=== PATIENT | male | born 1980 | race Caucasian/White ===

== ENCOUNTER 2016-09-16 07:01 | Day surgery (SDC) | payer SELFPAY ==
[2016-09-16] VITALS (8 sets, daily range): BP systolic 125–154; BP diastolic 77–103; PULSE 76–90; RESP 12–16; TEMP 97–98.6; O2SAT 94–97; Ht 185.4 cm; Wt 110.3 kg
[~2016-09-16] VITALS: Ht 185.4 cm; Wt 110.3 kg
[~2016-09-16 07:01] MED LIST: CYCL-375 PO; LIDOCAINE 1% (10mg/ml) 2ml SDV INJ ONE; LR 1,000 ML IV SCH
--- OUTSIDE RECORDS SUMMARY | 2016-09-16 07:06 | XMS REPORT | Referral Summary ---
Author Organization Unknown Address Unknown Phone Unavailable Care Team Providers Care Aircraft Quality Control Inspector Name Role Phone Abebe Mejias JR Primary Care Physician [phone] [facility]counter [facility] [id number] Date(s): 09/26/14 - 09/26/14 [facility] [address] [place], [place] [address] Discharge Diagnosis: Chronic constipation Discharge Disposition: Home or Self Care Attending Physician: Don Ames III, MD Admitting Physician: Don Ames III, MD Referring Physician: Tobias Mejias JR, MD, [facility] Vital Signs Most recent to 1 oldest [Reference Range]: Peripheral Pulse 72 bpm Rate [60-100 bpm] (09/26/14 10:53 AM) Blood Pressure 116/68 mmHg [90-140/60-90 mmHg] (09/26/14 10:53 AM) Problem List Condition Effective Dates Status Health Status Informant Allergic rhinitis Active (disorder)(Confirmed ) Chronic Active constipation(Confirm ed) Erythrasma(Confirmed Active ) Folliculitis(Confirm Active ed) Hyperlipidemia(Confi Active rmed) Insomnia Active (disorder)(Confirmed ) Well adult Active exam(Confirmed) Obesity(Confirmed) Active patient Sinusitis(Confirmed) Active anterior knee pain Active syndrome-right(Confi rmed) Allergies, Adverse Reactions, Alerts No Known Medication Allergies Medications cephalexin 250 mg oral tablet tabs, Oral, QID, 0 Refill(s) Start Date: 09/26/14 Status: Ordered Colace 1 tabs, Oral, Daily, 0 Refill(s) Start Date: 08/30/14 Status: Ordered Fiber Choice 1.5 g oral tablet, chewable 1 tabs, Chewed, Daily, 0 Refill(s) Start Date: 08/30/14 Status: Ordered Linzess 145 mcg oral capsule See Instructions, 1 caps Oral Daily 30 minutes before breakfast, # 12 caps, 0 Refill(s), samples given to patient (Rx) Special Instructions: 1 caps Oral Daily 30 minutes before breakfast Start Date: 09/26/14 Status: Ordered NuLYTELY with Flavor Packs oral powder for reconstitution 240 mL, Oral, q15min, take as directed for colonoscopy, # 2,000 mL, 0 Refill(s) , Pharmacy: [id number] Special Instructions: take as directed for colonoscopy Start Date: 09/26/14 Status: Ordered Probiotic Formula oral capsule 1 caps, Oral, Daily, 0 Refill(s) Start Date: 08/30/14 Status: Ordered senna 1 tabs, Oral, BID, 0 Refill(s) Start Date: 08/30/14 Status: Ordered ZyrTEC 10 mg, Daily, 0 Refill(s) Start Date: 08/30/14 Status: Ordered Results No data available for this section Immunizations Vaccine Date Refusal Reason tetanus/diphth/pertuss (Tdap) adult/adol 06/13/09 tetanus-diphth toxoids (Td) adult/adol 01/08/95 Procedures Procedure Date Related Diagnosis Body Site Adenoidectomy Circumcision Tonsillectomy Social History Social History Type Response Smoking Status Never smoker Assessment and Plan Extracted from: Title: Ambulatory Patient Education Author: Don Ames III, MD Date : 09/26/14 Family Medicine Constipation, Adult Constipation is when a person has fewer than 3 bowel movements a week; has difficulty having a bowel movement; or has stools that are dry, hard, or larger than normal. As people grow older, constipation is more common. If you try to fix constipation with medicines that make you have a bowel movement (laxatives ) , the problem may get worse. Long-term laxative use may cause the muscles of the colon to become weak. A low-fiber diet, not taking in enough fluids, and taking certain medicines may make constipation worse. CAUSES Certain medicines, such as antidepressants, pain medicine, iron supplements , antacids, and water pills. Certain diseases, such as diabetes, irritable bowel syndrome (IBS), thyroid disease, or depression. Not drinking enough water. Not eating enough fiber-rich foods. Stress or travel. Lack of physical activity or exercise. Not going to the restroom when there is the urge to have a bowel movement. Ignoring the urge to have a bowel movement. Using laxatives too much. SYMPTOMS Having fewer than 3 bowel movements a week. Straining to have a bowel movement. Having hard, dry, or larger than normal stools. Feeling full or bloated. Pain in the lower abdomen. Not feeling relief after having a bowel movement. DIAGNOSIS Your caregiver will take a medical history and perform a physical exam. Further testing may be done for severe constipation. Some tests may include: A barium enema X-ray to examine your rectum, colon, and sometimes, your small intestine. A sigmoidoscopy to examine your lower colon. A colonoscopy to examine your entire colon. TREATMENT Treatment will depend on the severity of your constipation and what is causing it. Some dietary treatments include drinking more fluids and eating more fiber- rich foods. Lifestyle treatments may include regular exercise. If these diet and lifestyle recommendations do not help, your caregiver may recommend taking grks-ldk-rafigot laxative medicines to help you have bowel movements. Prescription medicines may be prescribed if cjcx-iqf-xirexzr medicines do not work. HOME CARE INSTRUCTIONS Increase dietary fiber in your diet, such as fruits, vegetables, whole grains, and beans. Limit high-fat and processed sugars in your diet, such as Slovak fries, hamburgers, cookies, candies, and soda. A fiber supplement may be added to your diet if you cannot get enough fiber from foods. Drink enough fluids to keep your urine clear or pale yellow. Exercise regularly or as directed by your caregiver. Go to the restroom when you have the urge to go. Do not hold it. Only take medicines as directed by your caregiver. Do not take other medicines for constipation without talking to your caregiver first. SEEK IMMEDIATE MEDICAL CARE IF: You have bright red blood in your stool. Your constipation lasts for more than 4 days or gets worse. You have abdominal or rectal pain. You have thin, pencil-like stools. You have unexplained weight loss. MAKE SURE YOU: Understand these instructions. Will watch your condition. Will get help right away if you are not doing well or get worse. Document Released: 02/21/2005 Document Revised: 08/17/2012 Document Reviewed: [facility] Patient Information 2014 [employer] [facility]. No follow up information was provided.
--- OUTSIDE RECORDS SUMMARY | 2016-09-16 07:06 | XMS REPORT | Continuity of Care Document ---
Author Author Michaelle Hardy Ambulatory Address Unknown Phone Unavailable Care Team Providers Care Leather Flesher Name Role Phone Tobias Mejias BRIDGETT Unavailable Payers Payer name Insurance type Covered alliance party ID Authorization(s) Unknown Problems Condition Effective Dates (start - stop) Clinical Status Constipation, unspecified - *Chronic Fatigue / Malaise - *Symptomatic Other specified diseases of hair and hair follicles - *Chronic Other specified diseases of hair and hair follicles - Chronic Allergic rhinitis, cause unspecified - Chronic Other and unspecified hyperlipidemia - Chronic Insomnia, Other - Chronic Unspecified sinusitis (chronic) - Chronic Animal Impersonator's permit PE (physical examination) - *Routine Folliculitis barbae - Episodic Constipation - *Chronic Mid back pain - *Worse Abrasion - *Symptomatic Iliotibial band tendonitis - *Symptomatic Unspecified sinusitis (chronic) - *Chronic Folliculitis - *Chronic Allergic rhinitis due to other allergen - *Controlled Nonallergic rhinitis - *Chronic Deviated septum - Mild Constipation, unspecified - *Chronic Backache - *Acute ALLERGIC RHINITIS NEC - INSOMNIA NOS - Family History Family Member Diagnosis Age At Onset Status Paternal grandfather (Unknown) Asthma Yes Paternal grandfather (Unknown) CAD Yes Brother (Unknown) Asthma Yes Social History Social History Element Description Quantity Unknown Allergies, Adverse Reactions, Alerts Substance Reaction Severity Status Unknown Medications Medication Instructions Dosage Effective Dates (start - stop) Status cephalexin 500 mg capsule take 1 capsule (500MG) by oral route 2 times every day for 2 days the day of and day after hair cuts for pseudofolliculitis barbae 500 MG - Active Linzess 145 mcg capsule take 1 capsule (145MCG) by oral route every day on an empty stomach at least 30 minutes before 1st meal of the day swallowing whole. Do not break, chew and/or open. 145 MCG - Active Zyrtec 10 mg tablet take 1 tablet (10MG) by oral route every day as needed 10 MG - Active EpiPen 0.3 mg/0.3 mL (1:1,000) injection,auto-injector inject (0.3MG) by intramuscular route once as needed for anaphylaxis - Active inject by Subcutaneous route every per protocol 0 - Active Immunizations Vaccine Date Status Comments Tdap completed - Completed reason: previously given Results Test Name Date and Time Measure Units Reference Range Abnormal Flag Comments Panel Description: CBC WBC 11:45:00 6.6 K/uL 4.8-10.8 RBC 11:45:00 4.83 M/uL 4.60-6.20 HGB 11:45:00 14.7 g/dl 14.0-18.0 HCT 11:45:00 43.0 % 42.0-52.0 MCV 11:45:00 89.0 fL 82.0-99.0 MCH 11:45:00 30.4 pg 27.0-32.0 MCHC 11:45:00 34.2 g/dL 32.0-36.0 RDW 11:45:00 13.1 % 11.5-14.5 MPV 11:45:00 9.8 fL 8.8-14.8 Platelet Count 11:45:00 280 K/uL 150-400 Immature Granulocytes 11:45:00 0.2 % 0.0-1.0 Absolute Neutrophils 11:45:00 3.17 THOUS 1.90-7.00 Absolute Lymphocytes 11:45:00 2.43 THOUS 0.80-3.30 Absolute Monocytes 11:45:00 0.64 THOUS 0.30-1.00 Absolute Eosinophils 11:45:00 0.26 THOUS 0.00-0.50 Absolute Basophils 11:45:00 0.05 THOUS 0.00-0.20 Neutrophils 11:45:00 48 % 51-75 L Lymphocytes 11:45:00 37 % 20-46 Monocytes 11:45:00 10 % 4-11 Eosinophils 11:45:00 4 % 0-4 Basophils 11:45:00 1 % 0-2 Testing performed at [facility] [address] [place] [address] Weight Clerk Juan Araujo MD Panel Description: TSH-AMS TSH 11:45:00 0.93 uIU/mL 0.35-4.94 Testing performed at [facility] [address] [place] [id number] Weight Clerk Juan Araujo MD Vital Signs Date / Time: Height Weight Pulse Rate Blood Pressure Temperature /10:59:00 73.50 in 248.80 lbs 84 /min 114/80 mm[Hg] 97.2 F Procedures Procedure Date Unknown Encounters Encounter Location Date Patient Visit [facility] Patient Visit [facility] Patient Visit [facility] Patient Visit [facility] Patient Visit [facility] Patient Visit [facility] Patient Visit [facility] Patient Visit [facility] Patient Visit [facility] Patient Visit [facility] Advance Directives Directive Effective Date Unknown
--- OUTSIDE RECORDS SUMMARY | 2016-09-16 07:06 | XMS REPORT | Referral Summary ---
Author Organization Unknown Address Unknown Phone Unavailable Care Team Providers Care Spot Billing Clerk Name Role Phone Abebe Mejias JR Primary Care Physician [phone] Encounter [facility] Date(s): 10/04/14 - 10/04/14 [facility] [address] [place], [place] [address] Discharge Diagnosis: Chronic constipation Discharge Disposition: Home or Self Care Attending Physician: Don Ames III, MD Admitting Physician: Don Ames III, MD Vital Signs Most recent to 1 oldest [Reference Range]: Temperature Oral 36.1 degC [35.8-37.3 degC] (10/04/14 8:50 AM) Peripheral Pulse 59 bpm Rate [60-100 bpm] *LOW* (10/04/14 8:50 AM) Respiratory Rate 16 br/min [14-20 br/min] (10/04/14 8:50 AM) Blood Pressure 118/77 mmHg [90-140/60-90 mmHg] (10/04/14 8:50 AM) Most recent to 1 oldest [Reference Range]: SpO2 99 % (10/04/14 8:50 AM) Problem List Condition Effective Dates Status [...] before breakfast Start Date: 09/26/14 Status: Ordered Probiotic Formula [...] Smoking Status Never smoker Assessment and Plan No data available for this section
--- OUTSIDE RECORDS SUMMARY | 2016-09-16 07:06 | XMS REPORT | Referral Summary ---
Author Author [facility] Organization [facility] Address Unknown Phone Unavailable Care Team Providers Care Histologic Technician Name Role Phone Freedom Grace Primary Care Physician [phone] Encounter [facility] [id number] Date(s): 06/13/15 - 06/13/15 [facility] [address] [place] [address] GARRICK Farmer [id number] Discharge Diagnosis: Status post vasectomy Discharge Diagnosis: Hyperlipidemia Discharge Diagnosis: Status post vasectomy Discharge Disposition: 01-Home or Self Care Attending Physician: Willy Ocampo JR, MD Admitting Physician: Willy Ocampo JR, MD Referring Physician: Karsten Grace MD Vital Signs Most recent to 1 oldest [Reference Range]: Peripheral Pulse 60 bpm Rate [60-100 bpm] (06/13/15 2:34 PM) Blood Pressure 122/92 mmHg [90-140/60-90 mmHg] (06/13/15 2:34 PM) Problem List Condition Effective Dates Status Health Status Informant Allergic rhinitis Active (disorder)(Confirmed ) Chronic Active constipation(Confirm ed) Erythrasma(Confirmed Active ) Folliculitis(Confirm Active ed) Hyperlipidemia(Confi Active rmed) Insomnia Active (disorder)(Confirmed ) Well adult Active exam(Confirmed) Obesity(Confirmed) Active patient Sinusitis(Confirmed) Active anterior knee pain Active syndrome-right(Confi rmed) Allergies, Adverse Reactions, Alerts No Known Medication Allergies Medications cephalexin 500 mg oral capsule See Instructions, TAKE ONE CAPSULE BY MOUTH TWICE DAILY FOR 2 DAYS,(TAKE DAY OF AND THE DAY AFTER HAIRCUTS), # 30 caps, eRx: [id number], TAKE ONE CAPSULE BY MOUTH TWICE DAILY FOR 2 DAYS,(TAKE DAY OF AND THE DAY AFTER HAIRCUTS) Start Date: 04/28/15 Status: Ordered Results No data available for this section Immunizations Vaccine Date Refusal Reason tetanus/diphth/pertuss (Tdap) adult/adol 06/13/09 tetanus-diphth toxoids (Td) adult/adol 01/08/95 Procedures Procedure Date Related Diagnosis Body Site Adenoidectomy Circumcision Tonsillectomy Social History Social History Type Response Smoking Status Never smoker Assessment and Plan Extracted from: Title: Ambulatory Patient Education Author: Willy Ocampo JR, MD Date : 06/13/15 Follow Up With: Where: When: Karsten Grace [address] [place] [address] [employer] ([facility] Within 3 to 5 days Comments: Follow Up With: Where: When: Janet Ocampo In 6 months 12/12/2015 Comments: Extracted from: Title: Office Visit Note Author: Willy Ocampo JR, MD Date: 06/13/15 Assessment/Plan 1.Status post vasectomy, Status post vasectomy vasectomy site is healing when. . There was a long discussion about using marital contraception until there is no more lives sperm cells on the sperm analysis. It occurs about 15 ejaculations in bringing in this 6 and specimen and then have internalized and if there is no more lives sperm cells on the sperm analysis in the 16 specimen then no more: Perception is needed. 6 months or should repeat sperm analysis to be sure spontaneous recanalization had not occurred. Ordered: Office Visit Level 3 Est 87681 2.Hyperlipidemia continue nystatin
--- OUTSIDE RECORDS SUMMARY | 2016-09-16 07:07 | XMS REPORT | Referral Summary ---
Author Author [facility], [facility] Organization [facility] Address Unknown Phone Unavailable Care Team Providers Care [facility] Pricing Consultant Name Role Phone Freedom Grace Primary Care Physician [phone] Encounter [facility] [id number] Date(s): 02/28/15 - 02/28/15 [facility] [place] [address] Discharge Diagnosis: Candidiasis of skin Discharge Disposition: 01-Home or Self Care Attending Physician: Mirian Gilliam APRN Admitting Physician: Mirian Gilliam APRN Vital Signs Most recent to 1 oldest [Reference Range]: Temperature Tympanic 36.5 degC [36.6-38.1 degC] *LOW* (02/28/15 3:04 PM) Peripheral Pulse 76 bpm Rate [60-100 bpm] (02/28/15 3:04 PM) Respiratory Rate 14 br/min [14-20 br/min] (02/28/15 3:04 PM) Blood Pressure 132/80 mmHg [90-140/60-90 mmHg] (02/28/15 3:04 PM) Problem List Condition Effective Dates Status [...] DAY AFTER HAIRCUTS), # 30 caps, eRx: [facility] [id number], TAKE ONE CAPSULE BY MOUTH TWICE DAILY [...] smoker Assessment and Plan Extracted from: Title: Office Visit Note Author: Mirian Gilliam BUSINESS CONTROLLER Date: 02/28/15 Assessment/Plan 1.Candidiasis of skin Patient counseled regarding diagnosis, natural history, pathophysiology, typical treatment, and expected results. Questions and concerns answered. Nystatin cream twice a day. Continue for at least one week after clear. Repeat if recurs. Recommend probiotic or increasing yogurt intake. If it fails to improve let us know. Ordered: Office Visit Level 3 Est [id number] Orders: nystatin topical, 1 miguel, Topical, BID, cont x one week after clear. Repeat if recurrs., # 30 g, 0 Refill(s), Pharmacy: [facility] [id number]
--- OUTSIDE RECORDS SUMMARY | 2016-09-16 07:07 | XMS REPORT | Continuity of Care Document ---
Author Author Vince NAJERA, Flavio Finley [facility] Ambulatory Address [address] [place] [address] [place] [address] Phone Care Team Providers Care Batch Attendant Name Role Phone Tobias Mejias PP Unavailable Payers Payer name Insurance type Covered libertarian ID Authorization(s) Unknown Problems Condition Effective Dates (start - stop) Clinical Status Abrasion - *Symptomatic Iliotibial band tendonitis - *Symptomatic Allergic rhinitis, cause unspecified - Chronic Other and unspecified hyperlipidemia - Chronic Insomnia, Other - Chronic Unspecified sinusitis (chronic) - Chronic Constipation, unspecified - *Chronic Fatigue / Malaise - *Symptomatic Other specified diseases of hair and hair follicles - *Chronic Other specified diseases of hair and hair follicles - Chronic Sheet Metal Worker's permit PE (physical examination) - *Routine Folliculitis barbae - Episodic Constipation - *Chronic Mid back pain - *Worse Unspecified sinusitis (chronic) - *Chronic Folliculitis - [...] Dosage Effective Dates (start - stop) Status Zyrtec 10 mg tablet take 1 tablet (10MG) by oral route every day as needed 10 MG - Active EpiPen 0.3 mg/0.3 mL (1:1,000) injection,auto-injector inject (0.3MG) by intramuscular route once as needed for anaphylaxis - Active inject by Subcutaneous route every per protocol 0 - Active Linzess 145 mcg capsule take 1 capsule (145MCG) by oral route every day on an empty stomach at least 30 minutes before 1st meal of the day swallowing whole. Do not break, chew and/or open. 145 MCG - Active cephalexin 500 mg capsule take 1 capsule (500MG) by oral route 2 times every day for 2 days the day of and day after hair cuts for pseudofolliculitis barbae 500 MG - Active Immunizations Vaccine Date Status Comments Tdap completed - Completed reason: previously given Results Test Name Date and Time Measure Units Reference Range Abnormal Flag Comments Unknown Vital Signs Date / Time: Height Weight Pulse Rate Blood Pressure Temperature /13:49:00 73.50 in 248.80 lbs 92 /min 132/84 mm[Hg] 97.8 F Procedures Procedure Date Unknown Encounters Encounter Location Date Patient Visit [facility] Patient Visit [facility] Patient Visit [facility] All[facility] Patient Visit [facility] Patient Visit [facility] Patient Visit [facility] Patient Visit [facility] Patient Visit [facility] Allergy Patient Visit [facility] Patient Visit [facility] Advance Directives Directive Effective Date Unknown
--- OUTSIDE RECORDS SUMMARY | 2016-09-16 07:07 | XMS REPORT | Referral Summary ---
Author Organization Unknown Address Unknown Phone Unavailable Care Team Providers Care Car Parker Name Role Phone Abebe Mejias JR Primary Care Physician [phone] Encounter [facility] Date(s): 08/01/14 - 08/01/14 [facility], Family [address] [place], [place] [address] Discharge Diagnosis: Sore throat Discharge Diagnosis: Exposure to strep throat Discharge Diagnosis: Acute pharyngitis Discharge Disposition: Home or Self Care Attending Physician: Tobias Mejias JR, MD, FAAFP Admitting Physician: Tobias Mejias JR, MD, FAAFP Vital Signs Most recent to 1 oldest [Reference Range]: Temperature Tympanic 37.5 degC [36.6-38.1 degC] (08/01/14 9:37 AM) Peripheral Pulse 96 bpm Rate [60-100 bpm] (08/01/14 9:37 AM) Blood Pressure 126/76 mmHg [90-140/60-90 mmHg] (08/01/14 9:37 AM) Problem List Condition Effective Dates Status Health Status Informant Allergic rhinitis Active (disorder)(Confirmed ) Chronic Active constipation(Confirm ed) Erythrasma(Confirmed Active ) Folliculitis(Confirm Active ed) Hyperlipidemia(Confi Active rmed) Insomnia Active (disorder)(Confirmed ) Well adult Active exam(Confirmed) Obesity(Confirmed) Active patient Sinusitis(Confirmed) Active anterior knee pain Active syndrome-right(Confi rmed) Allergies, Adverse Reactions, Alerts No Known Medication Allergies Medications ALLERGY INJECTION - IM ALLERGY INJECTION - IM, qMonth, 0 Refill(s) Start Date: 06/16/14 Status: Ordered amoxicillin 875 mg oral tablet 1 tabs, Oral, BID, X 10 days, # 20 tabs, 0 Refill(s), Pharmacy: [id number], 1 tabs Oral BID,x10 days Start Date: 08/01/14 Stop Date: 08/11/14 Status: Ordered cephalexin 500 mg oral capsule See Instructions, TAKE ONE CAPSULE BY MOUTH TWICE DAILY FOR 2 DAYS,(TAKE DAY OF AND THE DAY AFTER HAIRCUTS), # 30 caps, eRx: [id number], TAKE ONE CAPSULE BY MOUTH TWICE DAILY FOR 2 DAYS,(TAKE DAY OF AND THE DAY AFTER HAIRCUTS) Special Instructions: TAKE ONE CAPSULE BY MOUTH TWICE DAILY FOR 2 DAYS,(TAKE DAY OF AND THE DAY AFTER HAIRCUTS) Start Date: 07/15/14 Status: Ordered Results No data available for this section Immunizations Vaccine Date Refusal Reason tetanus/diphth/pertuss (Tdap) adult/adol 06/13/09 tetanus-diphth toxoids (Td) adult/adol 01/08/95 Procedures Procedure Date Related Diagnosis Body Site Adenoidectomy Circumcision Tonsillectomy Social History Social History Type Response Smoking Status Never smoker Assessment and Plan Extracted from: Title: Office Visit Note - Author: Tobias Mejias JR, MD, FAAFP Date: pharyngitis Assessment/Plan Acute pharyngitis rapid strep pending due to exposure will cover with Amoxil bid x10 days, Rx sent Recommended jgel-eur-xddrekf sore throat care, plus Tylenol or ibuprofen as needed. Call for any failure to improve or new symptoms. Ordered: amoxicillin, 1 tabs, Oral, BID, X 10 days, # 20 tabs, 0 Refill(s), Pharmacy: [id number], 1 tabs Oral BID,x10 days Office Visit Level 3 Est 10684 Exposure to strep throat Ordered: Office Visit Level 3 Est [id number] Orders: Group A Strep Culture
--- OUTSIDE RECORDS SUMMARY | 2016-09-16 07:07 | XMS REPORT | Continuity of Care Document ---
Author Author Via [facility] Organization [facility] Address Unknown Phone Unavailable Allergies Active Description Code Type Severity Reaction Onset Reported/Identified Relationship to Patient Clinical Status Yes No Known Medication Allergies NKMA N/A N/A 03/03/2014 Medications Problems Date Dx Coded Attending Type Code Diagnosis Diagnosed By 01/09/2016 Karsten Grace MD V70.0 Health checkup 01/09/2016 Karsten Grace MD V74.5 Screening for STDs 01/24/2016 Karsten Grace MD 296.20 Major depression, single episode, unspecified 02/15/2016 Karsten Grace MD V70.5 Health examination of defined subpopulations Procedures Code [place] [address] Chlamydia trachomatis detection by nucleic acid, amplified probe. 01/09/2016 49750 Neisseria gonorrhoeae detection by nucleic acid, amplified probe. 01/09/2016 07117 Preventive medicine, established patient, age 18-39 years 01/09/2016 [id number] Follow up appointment in 2 months 01/24/2016 69857 Office/outpatient visit; established patient, level 3 01/24/2016 06329 Urinalysis, nonautomated without microscopy 02/15/2016 09241 Pure tone audiometry (threshold); air only 02/15/2016 91309 Screening visual acuity, quantitative, bilateral 02/15/2016 95565 Office/outpatient visit; established patient, level 4 02/15/2016 DOT14 DOT Exam 2015 56620 Screening visual acuity, quantitative, bilateral 02/15/2016 00472 Pure tone audiometry (threshold); air only 02/15/2016 25674 Office/outpatient visit; established patient, level 3 03/25/2016 [id number] Follow up appointment in 2 months 03/25/2016 [id number] Follow up appointment in 8 months 03/26/2016 [id number] Follow up appointment in 1 year 03/26/2016 Results Encounters ACCT No. Visit Date/Time Discharge Status Pt. Type Provider Facility Loc./Unit Complaint [id number] 08/11/2013 13:47:00 08/11/2013 23 :59:59 [facility] Outpatient [id number] 07/26/2013 10:58:00 07/26/2013 23 :59:59 [facility] Outpatient
--- OUTSIDE RECORDS SUMMARY | 2016-09-16 07:07 | XMS REPORT | Referral Summary ---
Author Author [facility] Organization [facility] Address Unknown Phone Unavailable Care Team Providers Care Clerical Order Filler Name Role Phone Les Rodríguez Primary Care Physician [phone] Encounter Date(s): 04/03/15 - 04/03/15 [facility] [address] [place] [id number] Discharge Diagnosis: Acute pharyngitis Discharge Disposition: 01-Home or Self Care Attending Physician: Joni Rodríguez MD Admitting Physician: Joni Rodríguez MD Vital Signs Most recent to 1 oldest [Reference Range]: Temperature Tympanic 36.1 degC [36.6-38.1 degC] *LOW* (04/03/15 11:22 AM) Peripheral Pulse 68 bpm Rate [60-100 bpm] (04/03/15 11:22 AM) Respiratory Rate 12 br/min [14-20 br/min] *LOW* (04/03/15 11:22 AM) Blood Pressure 110/80 mmHg [90-140/60-90 mmHg] (04/03/15 11:22 AM) Problem List Condition Effective Dates Status Health Status Informant Allergic rhinitis Active (disorder)(Confirmed ) Chronic Active constipation(Confirm ed) Erythrasma(Confirmed Active ) Folliculitis(Confirm Active ed) Hyperlipidemia(Confi Active rmed) Insomnia Active (disorder)(Confirmed ) Well adult Active exam(Confirmed) Obesity(Confirmed) Active patient Sinusitis(Confirmed) Active anterior knee pain Active syndrome-right(Confi rmed) Allergies, Adverse Reactions, Alerts No Known Medication Allergies Medications cephalexin Oral, PROPHELACTIC FOR SKIN INFECTION, 0 Refill(s) Start Date: 04/03/15 Status: Ordered nystatin 100,000 units/g topical cream See Instructions, 1 EARNEST TOPICAL BID,INSTR:CONT X ONE WEEK AFTER CLEAR. REPEAT IF RECURRS., # 30 g, eRx: [employer] [id number], 1 EARNEST TOPICAL BID,INSTR: CONT X ONE WEEK AFTER CLEAR. REPEAT IF RECURRS. Start Date: 03/21/15 Status: Ordered Results No data available for this section Immunizations Vaccine Date Refusal Reason tetanus/diphth/pertuss (Tdap) adult/adol 06/13/09 tetanus-diphth toxoids (Td) adult/adol 01/08/95 Procedures Procedure Date Related Diagnosis Body Site Adenoidectomy Circumcision Tonsillectomy Social History Social History Type Response Smoking Status Never smoker Assessment and Plan Extracted from: Title: Ambulatory Patient Education Author: Joni Rodríguez MD Date: 04/03/15 Family Medicine Pharyngitis Pharyngitis is a sore throat (pharynx). There is redness, pain, and swelling of your throat. HOME CARE Drink enough fluids to keep your pee (urine) clear or pale yellow. Only take medicine as told by your doctor. You may get sick again if you do not take medicine as told. Finish your medicines, even if you start to feel better. Do not take aspirin. Rest. Rinse your mouth (gargle) with salt water ( tsp of salt per 1 qt of water ) every 12 hours. This will help the pain. If you are not at risk for choking, you can suck on hard candy or sore throat lozenges. GET HELP IF: You have large, tender lumps on your neck. You have a rash. You cough up green, yellow-brown, or bloody spit. GET HELP RIGHT AWAY IF: You have a stiff neck. You drool or cannot swallow liquids. You throw up (vomit) or are not able to keep medicine or liquids down. You have very bad pain that does not go away with medicine. You have problems breathing (not from a stuffy nose). MAKE SURE YOU: Understand these instructions. Will watch your condition. Will get help right away if you are not doing well or get worse. Document Released: 11/11/2008 Document Revised: 03/16/2014 Document Reviewed: [employer] Patient Information 2015 [employer]. This information is not intended to replace advice given to you by your health care provider. Make sure you discuss any questions you have with your health care provider. No follow up information was provided. Extracted from: Title: Office Visit Note Author: Joni Rodríguez MD Date: 04/03/15 Assessment/Plan Acute pharyngitis I did a throat culture will see what that shows. No specific treatment at this time. I think this is most likely a viral pharyngitis. He states he like to have a vasectomy. I'll refer him to Dr. Ocampo for further recommendations and evaluation. Ordered: Office Visit Level 3 Est 01310
--- OUTSIDE RECORDS SUMMARY | 2016-09-16 07:07 | XMS REPORT | Referral Summary ---
Author Organization Unknown Address Unknown Phone Unavailable Care Team Providers Care Dog Handler Or Trainer Name Role Phone Abebe Mejias JR Primary Care Physician [phone] Encounter VC Date(s): 07/12/14 - 07/12/14 [facility], Family [address] [place], [place] [address] Discharge Diagnosis: Allergy to pollen Discharge Diagnosis: Allergic reaction to inhaled dust Discharge Disposition: Home or Self Care Attending Physician: Tobias Mejias JR, MD, FAAFP Admitting Physician: Tobias Mejias JR, MD, FAAFP Vital Signs No data available for this section Problem List Condition Effective Dates Status Health [...] 0 Refill(s) Start Date: 06/16/14 Status: Ordered cephalexin 500 mg oral tablet 1 tabs, Oral, Once, FOLICULITIS, 0 Refill(s) Start Date: 06/16/14 Status: Ordered Results No data available for this section Immunizations Vaccine Date Refusal Reason tetanus/diphth/pertuss (Tdap) adult/adol 06/13/09 tetanus-diphth toxoids (Td) adult/adol 01/08/95 Procedures Procedure Date Related Diagnosis Body Site Adenoidectomy Circumcision Tonsillectomy Social History Social History Type Response Smoking Status Never smoker Assessment and Plan No data available for this section
--- OUTSIDE RECORDS SUMMARY | 2016-09-16 07:07 | XMS REPORT | Referral Summary ---
Author Author [facility] Organization [facility] Address Unknown Phone Unavailable Care Team Providers Care Precinct Commanding Officer Name Role Phone SanjayFreedom Primary Care Physician [phone] Encounter Date(s): 04/04/15 - 04/04/15 [facility] [address] [place] [address] [place] [id number] Discharge Diagnosis: Vasectomy evaluation Discharge Disposition: 01-Home or Self Care Attending Physician: Willy Ocampo JR, MD Admitting Physician: Willy Ocampo JR, MD Vital Signs Most recent to 1 oldest [Reference Range]: Peripheral Pulse 69 bpm Rate [60-100 bpm] (04/04/15 2:48 PM) Blood Pressure 120/82 mmHg [90-140/60-90 mmHg] (04/04/15 2:48 PM) Problem List Condition Effective Dates Status [...] DAY AFTER HAIRCUTS), # 30 caps, eRx: [facility] [id number], TAKE ONE CAPSULE BY MOUTH TWICE DAILY [...] Author: Willy Ocampo JR, MD Date : 04/04/15 Follow Up With: Where: When: Joni Rodríguez [address]; [place] [address] Business (1) Within 3 to 5 days Comments: Follow Up With: Where: When: Willy Gifford [address]; [place] [address] Business (1) In 2 weeks 04/18/2015 Comments: Extracted from: Title: Office Visit Note Author: Willy Ocampo JR, MD Date: 04/04/15 Assessment/Plan Vasectomy evaluation scheduled for bilateral vasectomy as an outpatient under local and intravenous sedation. Procedure rests competitions and following explained to patient with verbalize full understanding. Continue marital contraception until there is no more lives sperm cells on the sperm analysis. Patient should bring an athletic supporter, and an tight underwear. He needs to shave the operative site before he leaves the house for the plan procedure. Ordered: Office Visit Level 4 New [id number]
--- OUTSIDE RECORDS SUMMARY | 2016-09-16 07:07 | XMS REPORT | Referral Summary ---
Author Author [facility], [facility] Organization [facility] Address Unknown Phone Unavailable Care Team Providers Care Tracer Clerk Name Role Phone Freedom Grace Primary Care Physician [phone] Encounter [facility] [id number] Date(s): 04/03/15 - 04/03/15 [facility] [place] [id number] Discharge Diagnosis: Acute pharyngitis Discharge Disposition: 01-Home [...] DAY AFTER HAIRCUTS), # 30 caps, eRx: [employer] [id number], TAKE ONE CAPSULE BY MOUTH TWICE DAILY FOR 2 DAYS,(TAKE DAY OF AND THE DAY AFTER HAIRCUTS) Start Date: 04/28/15 Status: Ordered Results Microbiology Reports TEST: Respiratory Culture STATUS: Auth (Verified) BODY SITE: SOURCE: Throat COLLECTED DATE/TIME: 04/03/15 11:35 AM Respiratory Culture No pathogens isolated Normal respiratory merced present Immunizations Vaccine Date Refusal Reason tetanus/diphth/pertuss (Tdap) [...] Released: 11/11/2008 Document Revised: 03/16/2014 Document Reviewed: [facility] Patient Information 2015 [employer] [facility]. This information is not intended to replace [...] evaluation. Ordered: Office Visit Level 3 Est 91879
--- OUTSIDE RECORDS SUMMARY | 2016-09-16 07:07 | XMS REPORT | Referral Summary ---
Author Author [facility] Organization [facility] Address Unknown Phone Unavailable Care Team Providers Care Schedule Clerk Name Role Phone Les Rodríguez Primary Care Physician [phone] Encounter VC Date(s): 04/04/15 - 04/04/15 [facility] [address] [place] [address] [place] [id number] Discharge Diagnosis: Vasectomy evaluation Discharge Disposition: [...] REPEAT IF RECURRS., # 30 g, eRx: [employer] [id number], 1 EARNEST TOPICAL BID,INSTR: CONT X ONE [...] Follow Up With: Where: When: Joni Rodríguez [address] [place] [address] Drive; [place] [address] Business (1) Within 3 to 5 days Comments: Follow Up With: Where: When: Willy Gifford [address]; [place] [address] [facility] (1) In 2 weeks 04/18/2015 Comments: Extracted [...] procedure. Ordered: Office Visit Level 4 New [id number]
--- OUTSIDE RECORDS SUMMARY | 2016-09-16 07:07 | XMS REPORT | Referral Summary ---
Author Organization Unknown Address Unknown Phone Unavailable Care Team Providers Care Clinical Informatics Physician Name Role Phone Abebe Mejias JR Primary Care Physician [phone] Encounter VC Date(s): 08/30/14 - 08/30/14 [facility], Family Medicine [address] [place] [address] [place] [id number] Discharge Diagnosis: Chronic constipation Discharge Disposition: Home or Self Care Attending Physician: Tobias Mejias JR, MD, FAAFP Admitting Physician: Tobias Mejias JR, MD, FAAFP Vital Signs Most recent to 1 oldest [Reference Range]: Temperature Tympanic 36.5 degC [36.6-38.1 degC] *LOW* (08/30/14 3:03 PM) Peripheral Pulse 84 bpm Rate [60-100 bpm] (08/30/14 3:03 PM) Blood Pressure 114/76 mmHg [90-140/60-90 mmHg] (08/30/14 3:03 PM) Problem List Condition Effective Dates Status Health Status Informant Allergic rhinitis Active (disorder)(Confirmed ) Chronic Active constipation(Confirm ed) Erythrasma(Confirmed Active ) Folliculitis(Confirm Active ed) Hyperlipidemia(Confi Active rmed) Insomnia Active (disorder)(Confirmed ) Well adult Active exam(Confirmed) Obesity(Confirmed) Active patient Sinusitis(Confirmed) Active anterior knee pain Active syndrome-right(Confi rmed) Allergies, Adverse Reactions, Alerts No Known Medication Allergies Medications Colace 1 tabs, Oral, Daily, 0 Refill(s) Start Date: 08/30/14 Status: Ordered Fiber Choice 1.5 g oral tablet, chewable 1 tabs, Chewed, Daily, 0 Refill(s) Start Date: 08/30/14 Status: Ordered Probiotic Formula oral capsule 1 [...] Author: Tobias Mejias JR, MD, FAAFP Date: constipation Assessment/Plan 1.Chronic constipation Discussed lack of response to an adequate regimen, thanked him for his follow through and greatcompliance. Fully agree with his request to bereferred to gastroenterology for more in- depth evaluation, and more aggressive treatment. Appointment to be [facility] gastroenterology at the patients convenience. Single AP xrayview of the abdomen on the way out of the officetoday. Ordered: Internal Referral to Gastroenterology Office Visit Level 3 Est [id number] XR Abdomen AP Addendum Lab June 2014 including BMP and TSH are noted normal. by Tobias Mejias JR, MD, FAAFP on 30 August 2014 15:50:55 CDT Referrals to Other Providers chronic and worsening constipation Referred by: Tobias Mejias JR, MD, FAAFP
[2016-09-16] MEDS ORDERED: LIDOCAINE 1% (10mg/ml) 30ml SDV ONE (08:43)
[2016-09-16] MEDS ORDERED: EPINEPHRINE 1mg/ml INJECTION AMP ONE (08:43)
[2016-09-16] MEDS ORDERED: CEFAZOLIN 1 GRAM INJECTION IV ONE (09:00)
--- NOTE | 2016-09-16 09:04 | ANESPREOP ---
Anesthesia Record Date and Time DATE: 09/16/16 TIME: 09:03 Pre-Op Diagnosis ABD fat Proposed Surgical Procedure lipectomy of the abdomen NPO since: Midnight Allergies: Coded Allergies: No Known Drug Allergies (Verified Allergy, Unknown, 09/16/16) Ht/Wt/BMI Height: 6 ' 1.00 " Weight: 110.300 kg BMI: 32.1 kg/m2 Vital Signs Date Time Temp Pulse Resp B/P Pulse Ox O2 Delivery O2 Flow Rate FiO2 09/16/16 08:00 80 16 154/86 09/16/16 07:15 98.6 97 Room Air Medications Inpatient Medications Current Medications Medications (Trade) Dose Ordered Sig/Liz Start Time Stop Time Status Last Admin Dose Admin Lactated Ringer's (Lactated Ringers) 1,000 ml @ 50 mls/hr Q20H 09/16/16 07:00 09/16/16 07:56 50 MLS/HR Cyclobenzaprine HCl (Cyclobenzaprine HCl) 10 Mg Tablet, 1 TAB PO HS, (Reported) Last Taken: on 09/11/16 Currently on Beta Vinny: No Medical/Surgical History Anesthesia PMH: Denies: Anesthesia Reactions (NO AIRWAY ISSUES KNOWN), Cancer, Clotting Problems, Glaucoma, Malignant Hyperthermia, Sleep Apnea Smoking Status: Never smoker Has pt. smoked today?: No Use Chewing Tobacco?: No Second Hand Exposure: No Substance Use Type: does not use Alcohol Intake: rarely Past Surgical History Orthopedic Surgeries: Abdominal Surgeries: Genitourinary Surgeries: Cardiac Surgeries: Endocrine Surgeries: Reproductive Surgeries: Yes - VASECTOMY Neurological Surgeries: Ear Surgeries: Nose Surgeries: Throat Surgeries: Yes - TONSILLECTOMY Other Surgeries: Yes - WISDOM TEETH EXTRACTION Anesthesia Adverse Reactions: FOUND none Family Hx of Anesthesia Advers: none Hx of Motion Sickness: No Pertinent Findings EKG Rhythm: Sinus Rhythm Physical Exam Respiratory: Lungs clear Cardiovascular: FOUND Regular rate, rhythm Airway Assessment Mallampati Score: II TMD: 3 Fingerbreadths Neck Extension: Good Overall Assessment: No Airway Concerns ASA: 1 Plan Anesthesia Plan: TIVA, LMA Discussion Discussed risks/options/alternatives of anesthesia and questions answered. Patient consents. Nursing pain assessment noted. Attestation Statement Prior to the delivery of any anesthetic medication, I examined the patient, developed the plan, obtained the patient's consent and discussed the risk and benefits of the procedure with the patient/guardian. LENY BOWERS CRNA Sep 16, 2016 09:04
[2016-09-16] MEDS ORDERED: PROPOFOL 500mg 100 ML IV ONE (09:07)
[2016-09-16] MEDS ORDERED: KETAMINE 500mg/10ml INJECTION ONE (09:08)
[2016-09-16] MEDS ORDERED: FENTANYL 100mcg/2ml INJECTION ONE ×2 (09:08→09:34)
[2016-09-16] MEDS ORDERED: MIDAZOLAM 2mg/2ml INJECTION ONE (09:08)
[2016-09-16] MEDS ORDERED: PROPOFOL 500mg 50 ML IV ONE ×2 (09:23→10:20)
[2016-09-16] MEDS ORDERED: DEXAMETHASONE 4mg/ml - 1ml INJECTION ONE (09:44)
[2016-09-16] MEDS ORDERED: ONDANSETRON 4mg/2ml INJECTION ONE (09:44)
[2016-09-16] MEDS ORDERED: HYDROMORPHONE 2mg/ml INJECTION IV PRN (09:45)
[2016-09-16] MEDS ORDERED: ONDANSETRON 4mg/2ml INJECTION IV PRN ×2 (09:45→11:00)
[2016-09-16] MEDS ORDERED: METOCLOPRAMIDE 10mg/2ml INJECTION IV PRN (09:45)
[2016-09-16] MEDS ORDERED: KETOROLAC 30mg/ml INJECTION ONE (10:29)
--- NOTE | 2016-09-16 10:54 | PDPROCED ---
Procedure Note Date 09/16/16 Procedure Name Suction-assisted lipectomy of abdomen: Infused: 1000 ml, Effluent: 1520 ml Procedure Detail Preop dx: Excess fat of abdomen Postop dx: Same Anesthesia: TIVA Case: Clean Complications: None KANDY HUTCHINSON MD Sep 16, 2016 10:53
[2016-09-16] MEDS ORDERED: CEPH-583 PO (10:56)
[2016-09-16] MEDS ORDERED: ONDA4TAB4 PO (10:56)
[2016-09-16] MEDS ORDERED: OXYC1TAB8 PO (10:56)
[2016-09-16] MEDS ORDERED: ATROPINE 1mg/10ml Syringe IV PRN (11:00)
[2016-09-16] MEDS ORDERED: OXYCODONE/APAP 5mg/325mg TABLET PO PRN (11:00)
--- NOTE | 2016-09-16 12:35 | ANESPO ---
Post-Op Note Date 09/16/16 Time: 12:34 Status Pt Participated in Evaluation: Pt participated in person Vital Signs Date Time Temp Pulse Resp B/P Pulse Ox O2 Delivery O2 Flow Rate FiO2 09/16/16 12:15 97.7 79 12 126/78 95 Room Air 09/16/16 11:00 6.00 Respiratory Function: Airway patent, Regular respirations Cardiovascular Function: Regular pulse Mental Status: Alert/oriented Pain Level Intensity: 4 Hydration: Taking po fluids Complications during Recovery None apparent Follow-Up Instructions Instructions Per Surgeon ABRAHAM CLANCY I CIVIL RIGHTS INVESTIGATOR Sep 16, 2016 12:35
--- NOTE | 2016-09-16 17:21 | OPNOTEF ---
DATE OF OPERATION 09/16/2016 PREOPERATIVE DIAGNOSIS Excess fat of abdomen. POSTOPERATIVE DIAGNOSIS Excess fat of abdomen. OPERATION Suction assisted lipectomy of abdomen. SURGEON Angelita Lala M.D. INFUSION 1000 mL EFFLUENT 1520 mL ANESTHESIA TIVA INDICATION The patient is a 36-year-old man who presented with the complaint of excess fat of his abdomen, requesting evaluation for liposuction. The patient stated this has been a trouble area for him and that he has always held excess fat at this location. He has had a gradual weight gain over the past two year due to a change in work. He has been maintaining his current weight for the past eight months. No history of abdominal surgeries. He is not a smoker. On exam, he had excess fat of the anterior abdomen which was extraabdominal. He had a small amount of excess fat at his flanks. He had a slight amount of excess skin in the lower abdomen and no diastasis or abdominal scars. In detailed discussion with the patient preoperatively, the risks, benefits, and alternatives of liposuction of the abdomen were reviewed including, but not limited to, bleeding, infection, poor or keloid scarring, delayed wound healing, possible partial or complete loss of the skin flap or umbilicus, residual fat, skin, and/or asymmetry, altered sensation and nerve injury, rippling, and seroma. We especially discussed possible bruising and swelling of his scrotum and the need for compression garments. Also addressed that intraabdominal fat would not be addressed by this procedure. The patient understood and wished to proceed. DESCRIPTION OF OPERATION The patient was marked preoperatively in the upright position and was then brought to the operating room where, after suitable TIVA had been obtained, the abdomen was prepped and draped in the usual sterile manner. Of note, he received 1 GM of Ancef preoperatively and wore sequential stockings throughout. First, the abdomen was infiltrated with 1 liter of a mixture of 1 liter of normal saline plus 30 mL of 1% plain lidocaine plus 2 mL of 1:1000 of epinephrine. After a strict wait for hemostasis, liposuction was performed using the gynecomastia cannula for a total of 1520 mL. Of note, the fat was fairly fibrotic throughout. The wounds were then closed in one layer using interrupted buried sutures of 4-0 Monocryl. Benzoin and Steri-Strips were applied as well as a Band-Aid, Epifoam and a compression garment. The patient was then extubated and brought to the recovery room in stable condition. Effluent as noted above was 1520 mL after infusing 1000 mL. Case was clean. There were no specimens. MTDD
== END 2016-09-16 12:38 | disposition home or self-care (01) ==
LOC: SCU 07:01
PROVIDERS: ATTEND Surgery Plastic and Reconstructive Surgery
DX: Z41.1 Encounter for cosmetic surgery (principal); E65 Localized adiposity; Z98.52 Vasectomy status; Z79.899 Other long term (current) drug therapy